=== PATIENT | female | born 1975 | race African-American/Black ===

== ENCOUNTER 2017-08-23 08:27 | Emergency (ER) | payer BC, MEDICAID ==
[~2017-08-23] VITALS: Ht 175.3 cm; Wt 105.2 kg
[~2017-08-23 08:27] MED LIST: DICY10CA13 PO; DILA2TAB4 PO; LIDO5T TOP; LISI-363 PO; LOVA40TA PO; METO50 PO; PROT40TA PO
[2017-08-23 08:43] VITALS: BP 133/83; PULSE 108; RESP 20; TEMP 98.5; O2SAT 98
[2017-08-23] MEDS ORDERED: DICY10CA12 PO (10:41)
[2017-08-23] MEDS ORDERED: LOSA25TA PO (10:41)
[2017-08-23] MEDS ORDERED: METO50TA PO (10:41)
[2017-08-23] MEDS ORDERED: [UNRECOGNIZED DRUG - REMARK] (10:41)
[2017-08-23] MEDS ORDERED: MOME17I EACH NARE (10:53)
[2017-08-23] MEDS ORDERED: AZIT500T2 PO (10:53)
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
== END 2017-08-23 10:59 | disposition home or self-care (01) ==
LOC: PHED 08:27 → PHEFT 10:59
DX: J06.9 Acute upper respiratory infection, unspecified (principal); R05 Cough; R07.81 Pleurodynia; I10 Essential (primary) hypertension; E78.00 Pure hypercholesterolemia, unspecified; Z86.59 Personal history of other mental and behavioral disorders; Z86.79 Personal history of other diseases of the circulatory system; Z87.19 Personal history of other diseases of the digestive system
CPT/HCPCS: 99284